=== PATIENT | female | born 1970 | race Caucasian/White ===

== ENCOUNTER 2018-06-30 18:59 | Emergency (ER) | payer BC, MEDICAID ==
[~2018-06-30] VITALS: Ht 160 cm; Wt 86.0 kg
[2018-06-30 19:06] VITALS: Ht 160 cm; Wt 86.0 kg
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
[2018-06-30 20:31] VITALS: BP 142/73; PULSE 68; RESP 18
== END 2018-06-30 20:33 | disposition home or self-care (01) ==
LOC: FTE 18:59
DX: S16.1XXA Strain of muscle, fascia and tendon at neck level, initial encounter (principal); S29.9XXA Unspecified injury of thorax, initial encounter; V49.40XA Driver injured in collision with unspecified motor vehicles in traffic accident, initial encounter
CPT/HCPCS: 99282

== ENCOUNTER 2018-12-11 18:57 | Emergency (ER) | payer BC ==
[~2018-12-11] VITALS: Ht 160 cm; Wt 84.1 kg
[2018-12-11 19:09] VITALS: Ht 160 cm; Wt 84.1 kg
[2018-12-11] MEDS ORDERED: KETOROLAC 60 MG INJ IM STA (21:03)
[2018-12-11] MEDS ORDERED: CYCLOBENZAPRINE 10 MG TAB PO ONE (21:30)
[2018-12-11] MEDS ORDERED: DEXAMETHASONE 10 MG/ML 1 ML INJ IM ONE (21:30)
[2018-12-11] MEDS ORDERED: IBUP-1542 PO (21:32)
[2018-12-11] MEDS ORDERED: CYCL10TA7 PO (21:32)
[2018-12-11] MEDS ORDERED: ACET500C5 PO (21:34)
--- NOTE | 2018-12-11 21:43 | ERD ---
ER Documentation Chief Complaint Chief Complaint right leg pain x 1 month HPI History of Present Illness: 48-year-old female who reports a past medical history of diabetes been controlled with oral medication coming today with complaint of right leg pain is been present for 1 month. 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 Patient reports pain starts to her right hip and radiates down to her right lower extremity. Patient denies injury or trauma. At home pharmacological/nonpharmacological treatment for symptoms: Advil 400 mg Denies social concerns; Denies recent foreign travel ROS All systems reviewed and are negative except as per history of present illness. Medications Home Meds Active Scripts Acetaminophen* (Tylophen*) 500 Mg Capsule, 2 CAP PO Q6 PRN for PAIN AND OR ELEVATED TEMP, #30 CAP Prov:DK SETH V PRINCIPAL ARCHAEOLOGIST 12/11/18 Cyclobenzaprine Hcl* (Cyclobenzaprine Hcl*) 10 Mg Tablet, 10 MG PO TID for MUSCLE SPASM/MUSCLE PAIN, #15 TAB Prov:DK SETH V PRINCIPAL ARCHAEOLOGIST 12/11/18 Ibuprofen* (Motrin*) 600 Mg Tab, 600 MG PO Q6H PRN for INFLAMMATION/SWELLING/PAIN, #30 TAB Prov:DK SETH V PRINCIPAL ARCHAEOLOGIST 12/11/18 Allergies Allergies: Coded Allergies: No Known Allergy (Unverified , 12/11/18) PMhx/Soc Medical and Surgical Hx: pt denies Medical Hx, pt denies Surgical Hx Hx Alcohol Use: No Hx Substance Use: No Hx Tobacco Use: No Smoking Status: Never smoker FmHx Family History: diabetes, coronary disease Physical Exam Vitals Vital Signs Date Temp Pulse Resp B/P (MAP) Pulse Ox O2 O2 Flow FiO2 Time Delivery Rate 12/11/18 98.0 69 18 126/68 97 19:09 (87) Physical Exam Const: No acute distress, afebrile Head: Atraumatic Eyes: Normal Conjunctiva ENT: Normal External Ears, Nose and Mouth. Neck: Full range of motion. No meningismus. Resp: Clear to auscultation bilaterally Cardio: Regular rate and rhythm, no murmurs Abd: Soft, non tender, non distended. No guarding, no masses, no rigidity Skin: No petechiae or rashes Back: No midline or flank tenderness Ext: No cyanosis, or edema; RLE tenderness to palpation along left buttocks to posterior right lower extremity; positive straight leg raise Neur: Awake and alert x3, speaking in clear sentences, no focal deficits or facial asymmetry Psych: Normal Mood and Affect Results 24 hrs Laboratory Tests Test 12/11/18 20:59 POC Beta HCG, Qualitative NEGATIVE Current Medications Medications Dose Sig/Karyn Start Time Status Last (Trade) Ordered Route PRN Stop Time Admin Dose Reason Admin Ketorolac 60 mg ONCE STAT 12/11/18 DC 12/11/18 Tromethamine IM 21:03 21:14 (Toradol) 12/11/18 21:04 10 mg ONCE ONCE 12/11/18 DC 12/11/18 Dexamethasone IM 21:30 21:15 (Decadron) 12/11/18 21:31 10 mg ONCE ONCE 12/11/18 DC 12/11/18 Cyclobenzapri PO 21:30 21:15 ne HCl 12/11/18 21:31 (Flexeril) Procedures/MDM ED COURSE: ED course includes a thorough examination and history. The patient was stable throughout ED course. I kept the patient and/or family informed of laboratory and diagnostic imaging results throughout the ED course. LABS: Urine negative MEDICATIONS GIVEN IN ER: Dexamethasone, ketorolac, cyclobenzaprine Patient tolerated medication well with no adverse reactions. Patient reported improvement in pain. DIAGNOSTIC IMAGING: None PROCEDURES: None. MEDICAL DECISION MAKING: Low suspicion for life-threatening medical emergency. Otherwise healthy patient presenting with constellation of symptoms likely representing muscle spasm of back/right-sided sciatica as characterized by history, physical exam findings, lab findings. Patient reassessment @ 2130: Patient medicated as ordered. Patient hemodynamically stable. No respiratory distress, otherwise relatively well appearing and nontoxic. Disposition given. Patient educated on diagnoses, prescriptions, follow-up care, return precautions. Strict return precautions given for worsening condition; questions answered discharge. Patient verbalizes understanding of discharge instructions. PRESCRIPTIONS FOR HOME: Ibuprofen, cyclobenzaprine, acetaminophen DISPOSITION: DISCHARGE At this time, patient is stable for discharge and outpatient management. I have instructed the patient to follow-up with his/her primary care physician in 1-2 days. I have discussed with the patient the possibility of needing to see a specialist for further workup and imaging studies if symptoms persist. I have instructed the patient to promptly return to the ER for any new or worsening symptoms including increased pain, fever, nausea, vomiting, weakness or LOC. The patient and/or family expressed understanding of and agreement with this plan. All questions were answered. Home care instructions were provided. DISCLAIMER: Inadvertent spelling and grammatical errors are likely due to EHR/dictation software use and do not reflect on the overall quality of patient care. Also, please note that the electronic time recorded on this note does not necessarily reflect the actual time of the patient encounter. Departure Diagnosis: Primary Impression: Muscle spasm of back Additional Impression: Sciatica, right side Condition: Stable Patient Instructions: Muscle Spasm, Understanding Sciatica Ref[facility] Usted se cruz hecho un examen mdico de control que le indica que no est en yue condicin que requiera tratamiento urgente en el Departamento de Emergencia. Un estudio ms profundo y el tratamiento de dominguez condicin pueden esperar sin ningn riesgo hasta que usted sea atendida/o en el consultorio de dominguez mdico o yue clnica. Es responsabilidad suya arreglar yue nadira para el seguimiento del kristine. MANEJO DE CONDICIONES NO URGENTES EN EL FUTURO 1) Si usted tiene un mdico de atencin primaria: Usted debera llamar a dominguez mdico de atencin primaria antes de venir al departamento de emergencia. Despus de las horas de consultorio, dominguez doctor o dominguez asociado/a est disponible por telfono. El mdico o enfermero de zacarias en el servicio telefnico puede asesorarle por germán medio para atender el problema, o kristine contrario se puede programar yue nadira. 2) Si usted no tiene un mdico de atencin primaria: Llame al mdico o clnica de referencia que aparece abajo billy las horas de consultorio para hacer yue nadira para que le vean. CLINICAS: [facility] [phone] [address] [facility] 221 [phone] [address] [facility] 099 [phone] [address] [facility]. [facility] [phone] [address] [facility]. [place] [id number] [phone] [facility]. [phone] [address] [facility]. [facility] () Usted se cruz hecho un examen mdico de control que le indica que no est en yue condicin que requiera tratamiento urgente en el Departamento de Emergencia. Un estudio ms profundo y el tratamiento de dominguez condicin pueden esperar sin ningn riesgo hasta que usted sea atendida/o en el consultorio de dominguez mdico o yue clnica. Es responsabilidad suya arreglar yue nadira para el seguimiento del kristine. MANEJO DE CONDICIONES NO URGENTES EN EL FUTURO 1) Si usted tiene un mdico de atencin primaria: Usted debera llamar a dominguez mdico de atencin primaria antes de venir al departamento de emergencia. Despus de las horas de consultorio, dominguez doctor o dominguez asociado/a est disponible por telfono. El mdico o enfermero de zacarias en el servicio telefnico puede asesorarle por germán medio para atender el problema, o kristine contrario se puede programar yue nadira. 2) Si usted no tiene un mdico de atencin primaria: Llame al mdico o condado institucions de referencia que aparece abajo billy las horas de consultorio para hacer yue nadira para que le vean. SI USTED NO PUEDE PAGAR PARA SANJANA UN MEDICO puede ir a: [facility] [address] [place] [address] [facility] [address] [place] [address] [facility] [address] [place] [address] [facility] [address] [place] [address] Additional Instructions: Muchas juan por permitirnos participar en dominguez cuidado. Dominguez barbara y seguridad es nuestra principal prioridad en [facility]. Es importante leer todas las instrucciones de boone y la educacin que se proporcionan en dominguez paquete de boone. * Use yue almohadilla trmica o compresas calientes para ayudar con el dolor de espalda. Use inserciones de zapatos para ayudar con el dolor de pie. * Llame a dominguez mdico de atencin primaria MAANA para yue nadira billy los prximos 2 a 4 morfin y lleve toda la informacin y los medicamentos recetados. Llene las recetas y siga exactamente las instrucciones de la etiqueta. --Ibuprofeno es un medicamento que ayuda con el dolor / inflamacin. En la dosis de 600 a 800 mg, esto ayudar con la inflamacin / hinchazn. [place] veena medicamento segn las indicaciones. -Ciclobenzaprina cira relajante muscular; tome veena medicamento diariamente segn lo prescrito para la prxima semana para ayudar con dominguez espasmo muscular. No opere maquinaria pesada mientras est tomando veena medicamento; Puede causarle somnolencia. --Acetaminofeno icra medicamento para el dolor y / o fiebre. [place] veena medicamento segn sea necesario para el dolor leve a moderado. Veena medicamento no causar somnolencia. Si los sntomas empeoran y dominguez proveedor no est disponible, regrese inmediatamente al Departamento de Emergencias. ----- Thank you very much for allowing us to participate in your care. Your health and safety is our top priority at [facility]. It is important to read all discharge instructions and education provided in your discharge packet. *Use heating pad or hot packs to help with back pain. Use shoe inserts to help with foot pain.* Call your primary care doctor TOMORROW for an appointment during the next 2-4 days and bring all the information and medications prescribed. Have prescriptions filled and follow precisely the directions on the label. --Ibuprofen is a medication that will help with pain/inflammation. At the dosage of 600 to 800 mg, this will help with inflammation/swelling. Take this medication as prescribed. -Cyclobenzaprine as a muscle relaxer; take this medication daily as prescribed for the next week to help with your muscle spasm. Do not operate heavy machinery while taking this medication; It may make you drowsy. --Acetaminophen as a medication for pain and/or fever. Take this medication as needed for mild to moderate pain. This medication will not cause drowsiness. If the symptoms get worse and your provider is unavailable, return to the Emergency Department immediately. DK SETH NP Dec 11, 2018 21:43
== END 2018-12-11 21:47 | disposition home or self-care (01) ==
LOC: FTE 18:57
DX: M62.830 Muscle spasm of back (principal); M54.31 Sciatica, right side; E11.9 Type 2 diabetes mellitus without complications
CPT/HCPCS: 81025; 96372; 99284; J1100; J1885; Z7610